=== PATIENT | female | born 1940 | race Caucasian/White ===

== ENCOUNTER 2016-08-31 07:01 | Day surgery (SDC) | payer MEDICARE ==
--- NOTE | ~2016-08-31 | EGD ---
EGD REPORT [facility] [address] [id number] NAME: LUCILLE BEDOLLA : 36 STATUS : REG [facility]#: [id number] AGE: 76 ADM/REG DATE : 08/31/16 MR#: [id number] REPORT SERV DATE: 08/31/16 DICTATED BY: ABBI CHEEK DATE: 08/31/16 REPORT STATUS : Draft [facility]ANS[facility]ED BY: [facility] DATE: 08/31/16 [facility] Patient Name: Lucille Bedolla Date of : 1940 Attending MD: ABBI CHEEK, Procedure Date No Time: 08/31/2016 Procedure: Upper EUS Indications: Common bile duct dilation (acquired) seen on CT scan, Dysphagia Referring MD: YAZAN CHACON MD Medicines: Monitored Anesthesia Care Complications: No immediate complications. Estimated blood loss: None. Procedure: Pre-Anesthesia Assessment: - ASA Grade Assessment: II - A patient with mild systemic disease. After obtaining informed consent, the endoscope was passed under direct vision. Throughout the procedure, the patient's blood pressure, pulse, and oxygen saturations were monitored continuously. The GIF [id number] was introduced through the mouth, and advanced to the second part of duodenum. The Endoscope was introduced through the mouth, and advanced to the second part of duodenum. Findings: Endoscopic Finding : The Z-line was irregular. Evidence of a Janeth fundoplication was found in the gastric fundus. Multiple localized, medium-sized non-bleeding erosions were found in the gastric body. There were no stigmata of recent bleeding. Biopsies were taken with a cold forceps for histology. Verification of patient identification for the specimen was done. Estimated blood loss was minimal. The exam of the stomach was otherwise normal. The examined duodenum was endoscopically normal. The cardia and gastric fundus were normal on retroflexion. The area of the papilla was normal. Endosonographic Finding : There was dilation in the common bile duct which measured up to 9 mm. Endosonographic imaging of the visualized portion of the biliary system showed no stones, no mass and no stricture. There was no sign of significant endosonographic abnormality in the ampulla. The pancreatic duct had a dilated endosonographic appearance in the pancreatic head. The pancreatic duct measured up to 4.6 mm in diameter. EGD REPORT [place] [id number] [facility] [place]. [address] NAME: LUCILLE BEDOLLA : 36 [place] [facility] [place] [id number] AGE: 76 ADM/REG DATE : 08/31/16 MR#: [id number] REPORT SERV DATE: 08/31/16 DICTATED BY: ABBI CHEEK DATE: 08/31/16 REPORT STATUS : Draft TRANSCRIBED BY: [employer] DATE: 08/31/16 Endosonographic imaging of the pancreas showed no chronic pancreatitis and no mass. There was no sign of significant endosonographic abnormality in the examined duodenum. There was no sign of significant endosonographic abnormality in the gallbladder. An unremarkable gallbladder was identified. Endosonographic images of the stomach were unremarkable. There was no sign of significant endosonographic abnormality in the esophagus. A guidewire was placed and the scope was withdrawn. Dilation was performed in the entire esophagus with a Savary dilator with no resistance at 54 Fr. Impression: - Z-line irregular,. - A Janeth fundoplication was found. - Non-bleeding erosive gastropathy. Biopsied. - Normal examined duodenum. - There was dilation in the common bile duct which measured up to 9 mm. - There was no sign of significant pathology in the ampulla. - Normal area of the papilla. - The pancreatic duct had a dilated endosonographic appearance in the pancreatic head. The pancreatic duct measured up to 4.6 mm in diameter. - There was no sign of significant pathology in the examined duodenum. - There was no sign of significant pathology in the gallbladder. - Endosonographic images of the stomach were unremarkable. - There was no sign of significant pathology in the esophagus. - Dilation attempted in the entire esophagus. Successful. Recommendation: - Return to previous diet. - Continue present medications. - Await path results. - Return to referring physician. Procedure Code(s): --- Professional --- 84691, Esophagogastroduodenoscopy, flexible, transoral; with endoscopic ultrasound examination, including the esophagus, stomach, and either the duodenum or a surgically altered stomach where the jejunum is examined distal to the anastomosis [id number], Esophagogastroduodenoscopy, flexible, transoral; EGD REPORT [address] [address] NAME: LUCILLE BEDOLLA : 36 [place] [facility] [place] [id number] AGE: 76 ADM/REG DATE : 08/31/16 MR#: [id number] REPORT SERV DATE: 08/31/16 DICTATED BY: ABBI CHEEK DATE: 08/31/16 REPORT STATUS : Draft TRANSCRIBED BY: [employer] DATE: 08/31/16 with insertion of guide wire followed by passage of dilator(s) through esophagus over guide wire Diagnosis Code(s): --- Professional --- K22.8, Other specified diseases of esophagus Z98.89, Other specified postprocedural states K31.9, Disease of stomach and duodenum, unspecified K83.8, Other specified diseases of biliary tract R93.3, Abnormal findings on diagnostic imaging of other parts of digestive tract R13.10, Dysphagia, unspecified CPT copyright 2013 [employer]. All rights reserved. The codes documented in this report are preliminary and upon chief clinical dietitian review may be revised to meet current compliance requirements. ABBI CHEEK, 08/31/2016 9:21 AM Number of Addenda: 0 Note Initiated On: 08/31/2016 8:39 AM Scope Withdrawal Time 0 hours 0 minutes 0 seconds [id number] [id number]
[~2016-08-31 07:01] MED LIST: ADVAIR250 INH; BEN25 PO; CALTRA600D PO; LOM PO; MELATONIN5 M1 PO; MIRAPEX125 PO; PR25 PO; PREV30 PO; TYLENOL PM PO
== END 2016-08-31 23:59 | disposition home or self-care (01) ==
LOC: DMU 07:01
PROVIDERS: Internal Medicine Gastroenterology
PROC: 0DJ08ZZ Inspection of Upper Intestinal Tract, Via Natural or Artificial Opening Endoscopic (ICD-10-PCS; principal; 2016-08-31 09:00)
PROC: 0DB68ZX Excision of Stomach, Via Natural or Artificial Opening Endoscopic, Diagnostic (ICD-10-PCS; 2016-08-31 09:00)
DX: K83.8 Other specified diseases of biliary tract (principal); K22.8 Other specified diseases of esophagus; R93.3 Abnormal findings on diagnostic imaging of other parts of digestive tract; R13.10 Dysphagia, unspecified; K58.9 Irritable bowel syndrome, unspecified; K31.9 Disease of stomach and duodenum, unspecified; K44.9 Diaphragmatic hernia without obstruction or gangrene; G25.81 Restless legs syndrome; J45.909 Unspecified asthma, uncomplicated; K21.9 Gastro-esophageal reflux disease without esophagitis; Z98.890 Other specified postprocedural states; Z79.899 Other long term (current) drug therapy; Z88.0 Allergy status to penicillin; Z88.5 Allergy status to narcotic agent; Z90.49 Acquired absence of other specified parts of digestive tract; Z90.89 Acquired absence of other organs; Z87.891 Personal history of nicotine dependence
CPT/HCPCS: 88305; A9270-GY